=== PATIENT | female | born 1955 | race Caucasian/White ===

== ENCOUNTER 2023-01-02 14:02 | Inpatient (IN) | payer OTHER, MEDICAID ==
[~2023-01-02] VITALS: Ht 152.4 cm; Wt 62.0 kg
[2023-01-02 15:10] LABS: Basophils # (auto) 0 10 ^3/uL (0-0.2); Basophils % (auto) 0.7 % (0.0-2.0); Eosinophils # (auto) 0.1 10 ^3/uL (0-0.8); Eosinophils % (auto) 1.6 % (0.0-7.0); Hematocrit 40.7 % (36.0-46.0); Hemoglobin 13.8 g/dL (12.2-16.2); Lymphocytes # (auto) 1.6 10 ^3/uL (0.4-5.4); Lymphocytes % (auto) 32.3 % (10.0-50.0); Mean Corpuscular Hemoglobin 28.9 pg (28.0-32.0); Mean Corpuscular Hgb Conc. 33.9 g/dL (32.0-36.0); Mean Corpuscular Volume 85.2 fL (80.0-100.0); Monocytes # (auto) 0.7 10 ^3/uL (0-1.3); Monocytes % (auto) 13.7 % (0.0-12.0); Neutrophils # (auto) 2.6 10 ^3/uL (1.6-8.6); Neutrophils % (auto) 51.7 % (37.0-80.0); Nucleated Red Blood Cells % 0.1 %; Red Blood Cells 4.77 10^6/uL (4.0-5.20); Red Cell Distribution Width 16.7 % (11.8-14.3); White Blood Cell 5.1 10^3/uL (4.4-10.8)
[2023-01-02 15:13] LABS: INR 1.16 (0.9-1.15); Prothrombin Time 12.1 sec (9.3-11.8)
[2023-01-02 15:14] LABS: Alanine Aminotransferase 74 U/L (7-40); Albumin 3.4 g/dL (3.2-4.8); Alkaline Phosphatase 137 U/L (46-116); Anion Gap 5 (5-15); Aspartate Aminotransferase 96 U/L (13-40); BUN/Creatinine Ratio 17.2 (10.0-20.0); Bilirubin, Total 0.8 mg/dL (0.2-1.0); Blood Urea Nitrogen 11 mg/dL (9-23); Calcium 8.7 mg/dL (8.7-10.4); Carbon Dioxide 29 mmol/L (20-30); Chloride 106 mmol/L (98-107); Glucose 148 mg/dL (74-106); Potassium 3.5 mmol/L (3.5-5.1); Sodium 140 mmol/L (136-145); Total Protein 6.6 g/dL (5.7-8.2)
[2023-01-02] MEDS ORDERED: VANCOMYCIN 1GM/250ML 250 ML IV ONE (15:15)
[2023-01-02] MEDS ORDERED: IOHEXOL 350 MG/ML 100ML IJ ONE (15:52)
[2023-01-02] MEDS ORDERED: ACETAMINOPHEN 325 MG TAB PO PRN (18:00)
[2023-01-02] MEDS ORDERED: ONDANSETRON HCL 4 MG/2 ML VIAL IV PRN (18:00)
[2023-01-02] MEDS ORDERED: MET25T PO (18:21)
[2023-01-02] MEDS ORDERED: GABA-339 PO (18:21)
[2023-01-02 19:20] VITALS: PULSE 76; RESP 16; O2SAT 92
[2023-01-02 19:35] VITALS: PULSE 101; RESP 20; O2SAT 90
[2023-01-02] MEDS: MORPHINE SULFATE INJ 2 MG/ml SYRG IV PRN (20:43)
[2023-01-02] MEDS: SODIUM CHLOR 0.9% PF (SALINE LOCK) 10ML VIAL/SYR IV SCH (22:23)
[2023-01-02] MEDS: CLINDAMYCIN 600MG IV 50 ML IV SCH (22:29)
[2023-01-02] MEDS: GABAPENTIN 300 MG CAP PO SCH (22:32)
[2023-01-02] MEDS: METOPROLOL TARTRATE 25 MG TAB PO SCH (22:38)
[2023-01-02] MEDS ORDERED: TRAZ1TAB12 PO (23:31)
[2023-01-02] MEDS ORDERED: traZODone HCL 50 MG TAB PO ONE (23:45)
[2023-01-03] MEDS ORDERED: traZODone HCL 50 MG TAB PO ONE (03:30)
[2023-01-03] MEDS: MORPHINE SULFATE INJ 2 MG/ml SYRG IV PRN ×3 (03:47→21:28)
[2023-01-03 05:59] LABS: Basophils # (auto) 0 10 ^3/uL (0-0.2); Basophils % (auto) 0.9 % (0.0-2.0); Eosinophils # (auto) 0.2 10 ^3/uL (0-0.8); Eosinophils % (auto) 3.6 % (0.0-7.0); Hematocrit 38.1 % (36.0-46.0); Hemoglobin 12.8 g/dL (12.2-16.2); Lymphocytes # (auto) 1.9 10 ^3/uL (0.4-5.4); Lymphocytes % (auto) 44.7 % (10.0-50.0); Mean Corpuscular Hemoglobin 28.9 pg (28.0-32.0); Mean Corpuscular Hgb Conc. 33.7 g/dL (32.0-36.0); Mean Corpuscular Volume 85.8 fL (80.0-100.0); Monocytes # (auto) 0.6 10 ^3/uL (0-1.3); Monocytes % (auto) 14.7 % (0.0-12.0); Neutrophils # (auto) 1.5 10 ^3/uL (1.6-8.6); Neutrophils % (auto) 36.1 % (37.0-80.0); Nucleated Red Blood Cells % 0.1 %; Red Blood Cells 4.44 10^6/uL (4.0-5.20); Red Cell Distribution Width 16.4 % (11.8-14.3); White Blood Cell 4.3 10^3/uL (4.4-10.8)
[2023-01-03] MEDS: SODIUM CHLOR 0.9% PF (SALINE LOCK) 10ML VIAL/SYR IV SCH ×3 (06:10→21:27)
[2023-01-03 06:11] LABS: Alanine Aminotransferase 66 U/L (7-40); Albumin 3.1 g/dL (3.2-4.8); Alkaline Phosphatase 120 U/L (46-116); Anion Gap 4 (5-15); Aspartate Aminotransferase 88 U/L (13-40); Blood Urea Nitrogen 11 mg/dL (9-23); Calcium 8.5 mg/dL (8.7-10.4); Carbon Dioxide 30 mmol/L (20-30); Chloride 107 mmol/L (98-107); Glucose 103 mg/dL (74-106); Potassium 3.9 mmol/L (3.5-5.1); Sodium 141 mmol/L (136-145)
[2023-01-03 06:12] LABS: Bilirubin, Total 1.4 mg/dL (0.2-1.0); Total Protein 6.2 g/dL (5.7-8.2)
[2023-01-03] MEDS: CLINDAMYCIN 600MG IV 50 ML IV SCH ×3 (06:19→21:24)
[2023-01-03 07:31] VITALS: PULSE 64; RESP 16; O2SAT 93
[2023-01-03] MEDS: GABAPENTIN 300 MG CAP PO SCH ×2 (10:00→21:26)
[2023-01-03] MEDS: METOPROLOL TARTRATE 25 MG TAB PO SCH ×2 (10:00→21:27)
[2023-01-03] MEDS: DOCUSATE SOD 100 MG CAP PO PRN (16:30)
[2023-01-03 16:40] VITALS: BP 132/77; PULSE 78; RESP 20; TEMP 98.2; O2SAT 93
[2023-01-03 17:31] VITALS: BP 132/77; PULSE 78; RESP 20; TEMP 98.2; O2SAT 96
[2023-01-03 22:00] VITALS: PULSE 85; RESP 18; TEMP 98
[2023-01-03] MEDS ORDERED: TEMAZEPAM 15 MG CAP PO ONE (23:15)
[2023-01-04 05:00] VITALS: BP 149/70; PULSE 66; RESP 18; TEMP 98.1; O2SAT 94
[2023-01-04] MEDS: CLINDAMYCIN 600MG IV 50 ML IV SCH ×3 (06:07→23:37)
[2023-01-04] MEDS: SODIUM CHLOR 0.9% PF (SALINE LOCK) 10ML VIAL/SYR IV SCH ×3 (06:08→23:41)
[2023-01-04] MEDS: MORPHINE SULFATE INJ 2 MG/ml SYRG IV PRN ×4 (06:10→20:57)
[2023-01-04 09:00] VITALS: BP 105/65; PULSE 61; RESP 17; TEMP 98.2; O2SAT 91
[2023-01-04 09:05] LABS: Basophils # (auto) 0 10 ^3/uL (0-0.2); Eosinophils # (auto) 0.2 10 ^3/uL (0-0.8); Eosinophils % (auto) 6.1 % (0.0-7.0); Hematocrit 38.8 % (36.0-46.0); Hemoglobin 12.9 g/dL (12.2-16.2); Lymphocytes # (auto) 1.4 10 ^3/uL (0.4-5.4); Lymphocytes % (auto) 43.6 % (10.0-50.0); Mean Corpuscular Hemoglobin 28.9 pg (28.0-32.0); Mean Corpuscular Hgb Conc. 33.3 g/dL (32.0-36.0); Mean Corpuscular Volume 86.8 fL (80.0-100.0); Monocytes # (auto) 0.5 10 ^3/uL (0-1.3); Monocytes % (auto) 16.7 % (0.0-12.0); Neutrophils % (auto) 32.6 % (37.0-80.0); Nucleated Red Blood Cells % 0.3 %; Red Blood Cells 4.47 10^6/uL (4.0-5.20); Red Cell Distribution Width 16.6 % (11.8-14.3); White Blood Cell 3.2 10^3/uL (4.4-10.8)
[2023-01-04 09:38] LABS: Calcium 8.6 mg/dL (8.5-10.1); Carbon Dioxide 30 mmol/L (20-30)
[2023-01-04 09:44] LABS: BUN/Creatinine Ratio 15.5 (10.0-20.0); Blood Urea Nitrogen 9 mg/dL (9-23); Glucose 110 mg/dL (74-106)
[2023-01-04] MEDS: FUROSEMIDE 20 MG/2 ML VIAL IV SCH (09:46)
[2023-01-04] MEDS: GABAPENTIN 300 MG CAP PO SCH ×2 (09:47→22:00)
[2023-01-04] MEDS: METOPROLOL TARTRATE 25 MG TAB PO SCH ×2 (09:48→23:31)
[2023-01-04 09:55] LABS: Anion Gap 4 (5-15); Chloride 107 mmol/L (98-107); Potassium 3.9 mmol/L (3.5-5.1); Sodium 141 mmol/L (136-145)
[2023-01-04] MEDS ORDERED: TEMAZEPAM 15 MG CAP PO PRN (11:45)
[2023-01-04] MEDS: DOCUSATE SOD 100 MG CAP PO PRN (11:48)
[2023-01-04 12:52] VITALS: BP 118/75; PULSE 69; RESP 17; TEMP 97.9; O2SAT 96
[2023-01-04] MEDS: HYDROcodone-ACET 5/325MG TAB PO PRN ×2 (13:33→23:26)
[2023-01-04] MEDS ORDERED: ENOXAPARIN SOD 40 MG/0.4 ML SYRINGE SC ONE (14:30)
[2023-01-04 17:00] VITALS: BP 122/78; PULSE 70; RESP 17; TEMP 97.9; O2SAT 94
[2023-01-04 20:00] VITALS: PULSE 72; RESP 18
[2023-01-04 22:00] VITALS: BP 127/71; PULSE 72; RESP 18; TEMP 98.4; O2SAT 95
[2023-01-05 05:00] VITALS: BP 104/55; PULSE 54; RESP 18; TEMP 98.3; O2SAT 96
[2023-01-05] MEDS: DOCUSATE SOD 100 MG CAP PO PRN ×2 (05:16→16:56)
[2023-01-05] MEDS: HYDROcodone-ACET 5/325MG TAB PO PRN ×3 (05:16→16:52)
[2023-01-05] MEDS: CLINDAMYCIN 600MG IV 50 ML IV SCH ×2 (06:09→14:00)
[2023-01-05] MEDS: SODIUM CHLOR 0.9% PF (SALINE LOCK) 10ML VIAL/SYR IV SCH ×2 (06:13→14:08)
[2023-01-05 06:34] LABS: Basophils # (auto) 0 10 ^3/uL (0-0.2); Basophils % (auto) 1.2 % (0.0-2.0); Eosinophils # (auto) 0.2 10 ^3/uL (0-0.8); Eosinophils % (auto) 6.3 % (0.0-7.0); Hematocrit 38.6 % (36.0-46.0); Hemoglobin 12.8 g/dL (12.2-16.2); Lymphocytes # (auto) 1.2 10 ^3/uL (0.4-5.4); Mean Corpuscular Hemoglobin 28.8 pg (28.0-32.0); Mean Corpuscular Hgb Conc. 33.2 g/dL (32.0-36.0); Mean Corpuscular Volume 86.6 fL (80.0-100.0); Monocytes # (auto) 0.5 10 ^3/uL (0-1.3); Monocytes % (auto) 15.8 % (0.0-12.0); Neutrophils # (auto) 1.1 10 ^3/uL (1.6-8.6); Neutrophils % (auto) 36.7 % (37.0-80.0); Nucleated Red Blood Cells % 0.5 %; Red Blood Cells 4.46 10^6/uL (4.0-5.20); Red Cell Distribution Width 16.4 % (11.8-14.3); White Blood Cell 2.9 10^3/uL (4.4-10.8)
[2023-01-05 06:41] LABS: Chloride 105 mmol/L (98-107); Potassium 4.3 mmol/L (3.5-5.1); Sodium 140 mmol/L (136-145)
[2023-01-05 06:42] LABS: Anion Gap 4 (5-15); Calcium 8.5 mg/dL (8.5-10.1); Carbon Dioxide 31 mmol/L (20-30)
[2023-01-05 06:47] LABS: BUN/Creatinine Ratio 15.8 (10.0-20.0); Blood Urea Nitrogen 9 mg/dL (9-23); Glucose 84 mg/dL (74-106)
[2023-01-05 08:00] VITALS: BP 131/65; PULSE 58; RESP 16; TEMP 97.9
[2023-01-05] MEDS: MORPHINE SULFATE INJ 2 MG/ml SYRG IV PRN ×2 (08:38→13:32)
[2023-01-05 08:52] VITALS: BP 131/65; PULSE 58; RESP 16; TEMP 97.9; O2SAT 97
[2023-01-05] MEDS: GABAPENTIN 300 MG CAP PO SCH (09:52)
[2023-01-05] MEDS: METOPROLOL TARTRATE 25 MG TAB PO SCH (09:53)
[2023-01-05] MEDS: FUROSEMIDE 20 MG/2 ML VIAL IV SCH (09:53)
[2023-01-05] MEDS ORDERED: ENOXAPARIN SOD 40 MG/0.4 ML SYRINGE SC SCH (10:00)
[2023-01-05] MEDS ORDERED: GABA-339 PO (11:00)
[2023-01-05] MEDS ORDERED: TEMA15CA2 PO (11:00)
[2023-01-05] MEDS ORDERED: HYDR-4798 PO (11:00)
[2023-01-05] MEDS ORDERED: MET25T PO (11:00)
[2023-01-05] MEDS ORDERED: CLIN300C70 PO (11:03)
[2023-01-05 12:56] VITALS: BP 124/71; PULSE 63; RESP 16; TEMP 98.3; O2SAT 95
[2023-01-05 15:03] VITALS: BP 135/72; PULSE 72; TEMP 36.8
[2023-01-05 16:48] VITALS: BP 120/73; PULSE 67; RESP 15; TEMP 98.1; O2SAT 95
== END 2023-01-05 17:40 | disposition home or self-care (01) | DRG 603 ==
LOC: EDBD 14:02 → ER 14:02 → OVERFLOW 18:21 → WEST WING 01-03 15:40
PROVIDERS: ADMIT Internal Medicine; ATTEND Student in an Organized Health Care Education/Training Program
DX: L03.116 Cellulitis of left lower limb (principal); L03.115 Cellulitis of right lower limb; I11.0 Hypertensive heart disease with heart failure; I50.9 Heart failure, unspecified; G89.29 Other chronic pain; K74.60 Unspecified cirrhosis of liver; K21.9 Gastro-esophageal reflux disease without esophagitis; Z96.652 Presence of left artificial knee joint; K75.9 Inflammatory liver disease, unspecified; G47.00 Insomnia, unspecified; Z87.891 Personal history of nicotine dependence
CPT/HCPCS: 36415; 71045; 71275; 73590; 80048; 80053; 83880; 84484; 85025; 85379; 85610; 93970; 96365; G0378; J3490

== ENCOUNTER 2023-03-29 09:58 | Inpatient (IN) | payer OTHER, MEDICAID ==
[~2023-03-29] VITALS: Ht 152.4 cm; Wt 78.9 kg
[~2023-03-29 09:58] MED LIST: CLIN300C70 PO; GABA-339 PO; HYDR-4798 PO; MET25T PO; TEMA15CA2 PO
[2023-03-29] MEDS ORDERED: FUROSEMIDE 40 MG/4 ML VIAL IV ONE (11:00)
[2023-03-29 11:43] LABS: Basophils # (auto) 0.1 10 ^3/uL (0-0.2); Eosinophils # (auto) 0.2 10 ^3/uL (0-0.8); Monocytes # (auto) 0.6 10 ^3/uL (0-1.3); Nucleated Red Blood Cells % 0.2 %; White Blood Cell 4.2 10^3/uL (4.4-10.8)
[2023-03-29 11:46] LABS: Basophils % (auto) 1.3 % (0.0-2.0); Eosinophils % (auto) 5.6 % (0.0-7.0); Hematocrit 37.3 % (36.0-46.0); Hemoglobin 12.1 g/dL (12.2-16.2); Lymphocytes # (auto) 1.2 10 ^3/uL (0.4-5.4); Mean Corpuscular Hemoglobin 27.1 pg (28.0-32.0); Mean Corpuscular Hgb Conc. 32.3 g/dL (32.0-36.0); Mean Corpuscular Volume 83.9 fL (80.0-100.0); Monocytes % (auto) 15.3 % (0.0-12.0); Neutrophils % (auto) 48.8 % (37.0-80.0); Red Blood Cells 4.45 10^6/uL (4.0-5.20); Red Cell Distribution Width 14.8 % (11.8-14.3)
[2023-03-29 11:55] LABS: Alanine Aminotransferase 35 U/L (7-40); Albumin 3.3 g/dL (3.2-4.8); Alkaline Phosphatase 184 U/L (46-116); Anion Gap 3 (5-15); Aspartate Aminotransferase 56 U/L (13-40); Bilirubin, Total 0.6 mg/dL (0.2-1.0); Blood Urea Nitrogen 12 mg/dL (9-23); Calcium 8.1 mg/dL (8.7-10.4); Carbon Dioxide 30 mmol/L (20-30); Chloride 107 mmol/L (98-107); Glucose 108 mg/dL (74-106); Magnesium 1.9 mg/dL (1.6-2.6); Potassium 4.1 mmol/L (3.5-5.1); Sodium 140 mmol/L (136-145); Total Protein 6.5 g/dL (5.7-8.2)
[2023-03-29] MEDS ORDERED: cefTRIAXone 1GM/50ML D5W 50 ML IV ONE (15:00)
[2023-03-29] MEDS ORDERED: ACETAMINOPHEN 325 MG TAB PO PRN (15:00)
[2023-03-29] MEDS ORDERED: AZITHROMYCIN 500MG/ 250ML 250 ML IV ONE (15:00)
[2023-03-29] MEDS ORDERED: FUROSEMIDE 20 MG/2 ML VIAL IV ONE (15:00)
[2023-03-29 15:32] VITALS: RESP 15; O2SAT 99
[2023-03-29 15:38] LABS: Triglycerides 56 mg/dL (< 150)
[2023-03-29 15:39] LABS: LDL Cholesterol 62 mg/dL (< 100)
[2023-03-29 15:40] LABS: Cholesterol 102 mg/dL (< 200); HDL Cholesterol 36 mg/dL (40-59)
[2023-03-29 16:54] LABS: Erythrocyte Sedimentation Rate 15 mm/hr (0-20)
[2023-03-29 19:55] VITALS: PULSE 121; RESP 20; O2SAT 92
[2023-03-29] MEDS: METOPROLOL TARTRATE 25 MG TAB PO SCH (23:23)
[2023-03-29] MEDS: GABAPENTIN 300 MG CAP PO SCH (23:24)
[2023-03-30 07:35] LABS: Basophils # (auto) 0 10 ^3/uL (0-0.2); Basophils % (auto) 0.8 % (0.0-2.0); Eosinophils # (auto) 0.2 10 ^3/uL (0-0.8); Eosinophils % (auto) 3.6 % (0.0-7.0); Hematocrit 37.5 % (36.0-46.0); Hemoglobin 12.2 g/dL (12.2-16.2); Lymphocytes # (auto) 1.8 10 ^3/uL (0.4-5.4); Lymphocytes % (auto) 31.8 % (10.0-50.0); Mean Corpuscular Hemoglobin 27.1 pg (28.0-32.0); Mean Corpuscular Hgb Conc. 32.6 g/dL (32.0-36.0); Mean Corpuscular Volume 83.3 fL (80.0-100.0); Monocytes # (auto) 0.9 10 ^3/uL (0-1.3); Neutrophils # (auto) 2.8 10 ^3/uL (1.6-8.6); Neutrophils % (auto) 48.8 % (37.0-80.0); Red Blood Cells 4.51 10^6/uL (4.0-5.20); Red Cell Distribution Width 15.3 % (11.8-14.3); White Blood Cell 5.7 10^3/uL (4.4-10.8)
[2023-03-30 07:50] VITALS: PULSE 86; RESP 15; O2SAT 97
[2023-03-30 07:58] LABS: Alanine Aminotransferase 33 U/L (7-40); Albumin 3.4 g/dL (3.2-4.8); Alkaline Phosphatase 186 U/L (46-116); Anion Gap 7 (5-15); Aspartate Aminotransferase 59 U/L (13-40); BUN/Creatinine Ratio 14.7 (10.0-20.0); Bilirubin, Total 0.7 mg/dL (0.2-1.0); Blood Urea Nitrogen 10 mg/dL (9-23); Calcium 8.5 mg/dL (8.5-10.1); Carbon Dioxide 28 mmol/L (20-30); Chloride 105 mmol/L (98-107); Glucose 89 mg/dL (74-106); Potassium 3.7 mmol/L (3.5-5.1); Sodium 140 mmol/L (136-145)
[2023-03-30] MEDS ORDERED: FUROSEMIDE 20 MG/2 ML VIAL IV SCH (10:00)
[2023-03-30] MEDS ORDERED: AZITHROMYCIN 500MG/ 250ML 250 ML IV SCH (10:00)
[2023-03-30] MEDS: cefTRIAXone 1GM/50ML D5W 50 ML IV SCH (10:27)
[2023-03-30] MEDS: GABAPENTIN 300 MG CAP PO SCH ×2 (10:34→21:47)
[2023-03-30] MEDS: ENOXAPARIN SOD 40 MG/0.4 ML SYRINGE SC SCH (10:35)
[2023-03-30] MEDS: METOPROLOL TARTRATE 25 MG TAB PO SCH ×2 (10:35→21:47)
[2023-03-30 13:15] LABS: Rapid Influenza A Negative (Negative); Rapid Influenza B Negative (Negative)
[2023-03-30] MEDS ORDERED: PANTOPRAZOLE 40 MG TAB PO ONE (13:15)
[2023-03-30 13:16] LABS: COVID19 ANTIGEN SOFIA FIA NEGATIVE (NEGATIVE)
[2023-03-30] MEDS ORDERED: ERGOCALCIFEROL 50,000 UNIT(1.25MG) CAP PO SCH (13:30)
[2023-03-30 16:00] VITALS: BP 131/74; PULSE 62; RESP 21; TEMP 98; O2SAT 90
[2023-03-30] MEDS: FUROSEMIDE 20 MG/2 ML VIAL IV SCH (18:52)
[2023-03-30 20:00] VITALS: PULSE 95; RESP 16; O2SAT 96
[2023-03-30] MEDS: TEMAZEPAM 15 MG CAP PO PRN (21:51)
[2023-03-30 22:00] VITALS: BP 114/63; PULSE 95; RESP 16; TEMP 98.1; O2SAT 96
[2023-03-31 05:41] VITALS: BP 109/66; PULSE 76; RESP 18; TEMP 97.9; O2SAT 91
[2023-03-31] MEDS: FUROSEMIDE 20 MG/2 ML VIAL IV SCH (06:20)
[2023-03-31 06:52] LABS: Calcium 8.1 mg/dL (8.5-10.1); Chloride 107 mmol/L (98-107); Hematocrit 34.2 % (36.0-46.0); Mean Corpuscular Hemoglobin 26.9 pg (28.0-32.0); Mean Corpuscular Hgb Conc. 32.1 g/dL (32.0-36.0); Mean Corpuscular Volume 83.6 fL (80.0-100.0); Potassium 3.4 mmol/L (3.5-5.1); Red Blood Cells 4.09 10^6/uL (4.0-5.20); Red Cell Distribution Width 15.1 % (11.8-14.3); Sodium 145 mmol/L (136-145); White Blood Cell 3.8 10^3/uL (4.4-10.8)
[2023-03-31 06:53] LABS: Anion Gap 7 (5-15); Carbon Dioxide 31 mmol/L (20-30)
[2023-03-31 06:58] LABS: BUN/Creatinine Ratio 13.9 (10.0-20.0); Blood Urea Nitrogen 11 mg/dL (9-23); Glucose 98 mg/dL (74-106)
[2023-03-31 07:04] LABS: Band Neutrophils % (manual) 0; Basophils % (manual) 0 (0.0-2.0); Blast Cells 0; Metamyelocytes % 0; Myelocytes % 0; Promyelocytes % 0; Reactive Lymphocytes 0
[2023-03-31] MEDS ORDERED: IOHEXOL 350 MG/ML 100ML IJ ONE (07:58)
[2023-03-31] MEDS ORDERED: POTASSIUM CHL 20 Meq TABLET PO ONE (08:00)
[2023-03-31 09:00] VITALS: BP 119/66; PULSE 75; RESP 17; TEMP 98.3; O2SAT 91
[2023-03-31 09:34] LABS: Eosinophils % (manual) 6 (0-7); Lymphocytes % (manual) 40 (10.0-50.0); Monocytes % (manual) 12 (0-12); Platelet Estimate Adequate
[2023-03-31] MEDS ORDERED: FUROSEMIDE 20 MG/2 ML VIAL IV SCH (10:00)
[2023-03-31] MEDS ORDERED: PANTOPRAZOLE 40 MG TAB PO SCH (10:00)
[2023-03-31] MEDS: METOPROLOL TARTRATE 25 MG TAB PO SCH ×2 (10:39→22:07)
[2023-03-31] MEDS: GABAPENTIN 300 MG CAP PO SCH ×2 (10:39→22:07)
[2023-03-31] MEDS: ENOXAPARIN SOD 40 MG/0.4 ML SYRINGE SC SCH (10:40)
[2023-03-31] MEDS: cefTRIAXone 1GM/50ML D5W 50 ML IV SCH (11:46)
[2023-03-31 13:00] VITALS: BP 131/88; PULSE 77; RESP 18; TEMP 98.6; O2SAT 93
[2023-03-31] MEDS ORDERED: FURO1TAB33 PO (13:16)
[2023-03-31] MEDS ORDERED: AUG875T PO (13:16)
[2023-03-31] MEDS ORDERED: ERGO1CAP23 PO (13:16)
[2023-03-31] MEDS ORDERED: POTA-228 PO (13:16)
[2023-03-31 17:00] VITALS: BP 125/85; PULSE 85; RESP 15; TEMP 98.9; O2SAT 91
[2023-03-31 20:00] VITALS: BP 115/73; PULSE 108; RESP 18; TEMP 99.4; O2SAT 94
[2023-03-31 22:00] VITALS: BP 115/73; PULSE 108; RESP 18; TEMP 99.4; O2SAT 94
[2023-03-31] MEDS: TEMAZEPAM 15 MG CAP PO PRN (22:07)
[2023-04-01 05:00] VITALS: BP 135/75; PULSE 82; RESP 17; TEMP 98.6; O2SAT 98
[2023-04-01 05:47] LABS: Basophils # (auto) 0 10 ^3/uL (0-0.2); Basophils % (auto) 0.8 % (0.0-2.0); Eosinophils # (auto) 0.2 10 ^3/uL (0-0.8); Hemoglobin 11.3 g/dL (12.2-16.2); Lymphocytes # (auto) 1.5 10 ^3/uL (0.4-5.4); Monocytes # (auto) 0.7 10 ^3/uL (0-1.3)
[2023-04-01 05:50] LABS: Eosinophils % (auto) 4.9 % (0.0-7.0); Hematocrit 35.2 % (36.0-46.0); Lymphocytes % (auto) 33.8 % (10.0-50.0); Mean Corpuscular Hemoglobin 26.8 pg (28.0-32.0); Mean Corpuscular Volume 83.8 fL (80.0-100.0); Monocytes % (auto) 15.9 % (0.0-12.0); Neutrophils % (auto) 44.6 % (37.0-80.0); Nucleated Red Blood Cells % 0.1 %; Red Cell Distribution Width 15.4 % (11.8-14.3); White Blood Cell 4.4 10^3/uL (4.4-10.8)
[2023-04-01 05:57] LABS: Anion Gap 4 (5-15); Carbon Dioxide 31 mmol/L (20-30); Chloride 107 mmol/L (98-107); Potassium 3.7 mmol/L (3.5-5.1); Sodium 142 mmol/L (136-145)
[2023-04-01 06:03] LABS: Blood Urea Nitrogen 12 mg/dL (9-23); Glucose 135 mg/dL (74-106)
[2023-04-01 08:00] VITALS: PULSE 105; RESP 14; O2SAT 94
[2023-04-01 09:00] VITALS: BP 151/97; PULSE 105; RESP 14; TEMP 97.7; O2SAT 94
[2023-04-01] MEDS: cefTRIAXone 1GM/50ML D5W 50 ML IV SCH (09:01)
[2023-04-01] MEDS: METOPROLOL TARTRATE 25 MG TAB PO SCH (09:02)
[2023-04-01] MEDS: GABAPENTIN 300 MG CAP PO SCH (09:02)
[2023-04-01] MEDS: ENOXAPARIN SOD 40 MG/0.4 ML SYRINGE SC SCH (09:03)
[2023-04-01 13:00] VITALS: BP 135/69; PULSE 70; RESP 16; TEMP 98.2; O2SAT 96
[2023-04-01 17:00] VITALS: BP 147/67; PULSE 75; RESP 16; TEMP 98.4; O2SAT 94
== END 2023-04-01 19:31 | disposition home or self-care (01) | DRG 602 ==
LOC: ER 09:58 → OVERFLOW 14:59 → EAST 03-30 15:42
PROVIDERS: ADMIT Internal Medicine; ATTEND Internal Medicine Pulmonary Disease
DX: L03.116 Cellulitis of left lower limb (principal); I50.43 Acute on chronic combined systolic (congestive) and diastolic (congestive) heart failure; I11.0 Hypertensive heart disease with heart failure; L03.115 Cellulitis of right lower limb; E66.01 Morbid (severe) obesity due to excess calories; K21.9 Gastro-esophageal reflux disease without esophagitis; J44.9 Chronic obstructive pulmonary disease, unspecified; R74.8 Abnormal levels of other serum enzymes; E55.9 Vitamin D deficiency, unspecified; G47.00 Insomnia, unspecified; E87.6 Hypokalemia; Z87.891 Personal history of nicotine dependence; Z71.3 Dietary counseling and surveillance; Z68.34 Body mass index [BMI] 34.0-34.9, adult; Z83.3 Family history of diabetes mellitus; Z20.822 Contact with and (suspected) exposure to COVID-19
CPT/HCPCS: 36415; 71046; 71275; 80048; 80053; 80061; 82306; 83036; 83735; 83880; 84443; 84484; 85007; 85025; 85027; 85379; 85652; 86141; 87426; 87804; 93306; 93970; 97110; 97163; 99291; G0378